=== PATIENT | female | born 1960 | race Caucasian/White ===

== ENCOUNTER → 2017-11-22 | Outpatient (CLI) | payer BC ==
--- NOTE | 2017-11-22 14:25 | MRI ---
EXAM DESCRIPTION: Lumbar Spine w/o Contrast MRI. CLINICAL HISTORY: LOW BACK PAIN COMPARISON: MRI lumbar spine 10/01/2015. TECHNIQUE: Multiplanar, multiple standard sequences, non contrast MRI, lumbar spine. FINDINGS: L5-S1: Disc desiccation with disc space maintained. Tiny posterior midline bulge. Modic type II endplate reactive changes to the right of midline with disc spur complex abutting the nerve root with moderate foraminal narrowing. Right facet arthrosis. Left foramen patent with normal left facet. Mild canal narrowing. Heterogeneous marrow signal in S1. L4-5: Disc desiccation and minimal disc space loss. Anterior Modic type II endplate reactive changes with anterior endplate ridging and disc bulging. Tiny posterior disc bulge. Bilateral flavum ligament hypertrophy. Normal facets. Mild canal narrowing. Mild right foraminal narrowing with left foramen patent. Heterogeneous marrow signal L5. L3-4: Anterior Modic type II endplate reactive changes with bulging disc and endplate ridging. Tiny posterior disc bulge. Posterior flavum ligament hypertrophy. Mild left facet arthrosis. Mild canal narrowing. Bilateral foramina are patent. Heterogeneous marrow signal L4. L2-3: Disc desiccation and disc space maintained. Anterior bulging with spurs to the left of midline. Modic type II anterior endplate reactive changes. Mild canal narrowing. Mild left foraminal narrowing. Posterior elements unremarkable. Right foramen patent. Heterogeneous marrow signal in L3. L1-2: Disc desiccation and anterior bulging, left anterior spurs and Modic type I endplate reactive changes. No posterior disc bulging. Minimal arthrosis right facet and minimal flavum ligament hypertrophy. Bilateral foramina are patent. Well-circumscribed bright T1 and T2 signal in the inferior posterior L2 vertebral body along with heterogeneous marrow signal. T12-L1: Disc desiccation and anterior disc space loss and anterior disc bulging. Anterior Modic type II endplate reactive changes. Canal and foramina are patent. Facets are unremarkable. Conus terminates at this level. Heterogeneous marrow signal T12 and L1. Dextroscoliosis L2-L4. Paravertebral soft tissues demonstrating age-related muscle atrophy. Inhomogeneous marrow signal in the vertebral bodies and the posterior elements. A hemangioma posterior right L2 vertebral body. Vertebral bodies are not compressed at any level. IMPRESSION: 1. Multiple levels of disc desiccation and spondylosis predominantly anterior with bulging disc and endplate changes and anterior endplate ridging or spurs. No canal or foraminal stenosis at any level. Moderate narrowing right L5-S1 foramen is stable. 2. Heterogeneous marrow signal also seen on the prior study. Stable hemangioma L3 vertebral body. Scoliosis lumbar spine is stable. Electronically signed by: Lamin Vásquez MD 11/22/2017 2:24 PM CDT
== END ==
LOC: MRI 07:56
PROVIDERS: ATTEND Family Medicine
DX: M51.86 Other intervertebral disc disorders, lumbar region (principal); M47.896 Other spondylosis, lumbar region

== ENCOUNTER → 2017-12-08 | Outpatient (CLI) | payer BC | LOC: LAB.O 12:18 | PROVIDERS: ATTEND Physician Assistant | DX: M54.5 Low back pain (principal) ==

== ENCOUNTER → 2018-04-23 | Outpatient (CLI) | payer BC | LOC: GMAJ 11:27 | PROVIDERS: ATTEND Family Medicine | DX: D51.3 Other dietary vitamin B12 deficiency anemia (principal); R79.89 Other specified abnormal findings of blood chemistry; R53.83 Other fatigue; E55.9 Vitamin D deficiency, unspecified; D50.9 Iron deficiency anemia, unspecified ==

== ENCOUNTER → 2018-04-26 | Outpatient (CLI) | payer BC | LOC: LAB.O 11:30 | PROVIDERS: ATTEND Family Medicine | DX: L65.8 Other specified nonscarring hair loss (principal) ==

== ENCOUNTER → 2020-06-01 | Outpatient (CLI) | payer OTHER | LOC: YCFC.O 10:13 | PROVIDERS: ATTEND Nurse Practitioner Family | DX: Z20.828 Contact with and (suspected) exposure to other viral communicable diseases (principal) ==